=== PATIENT | male | born 1990 | race Caucasian/White ===

== ENCOUNTER 2017-01-15 23:49 | Emergency (ER) | payer BC ==
--- NOTE | ~2017-01-15 | CT4 ---
[facility] A Service of [facility] RADIOLOGY TEXT RESULTS PATIENT: YUSUF QUIROZ LOCATION: SED : 88 UNIT #: [id number] AGE: [address]: LEIA LEAL SEX: M ORDER DR: [id number] [place] [id number] E MR#: [id number] Acc #: [id number] NAME: YUSUF QUIROZ. : 1990 SEX: M STUDY DATE/TIME: 01/16/2017 0:39 UNIT: SED ROOM: STUDY DESCRIPTION: CT Abd and Pelv Wo Cont Attending Physician: Leia Leal Ordering Physician: Kelvin Weaver M.D. Primary Care Physician: Primary Care Physician No MEDICAL IMAGING REPORT This report is preliminary unless electronic signature is present. EXAM CT abdomen and pelvis, noncontrast, 01/16/2017. HISTORY 26-year-old male in the ED complaining of right flank pain beginning at about 17[address] hours earlier tonight. TECHNIQUE CT examination of the abdomen and pelvis without oral or IV contrast using kidney stone protocol. This CT exam was performed with one or more of the following radiation dose reduction techniques: automatic exposure control, adjustment of mA and/or kV according to patient size, and iterative reconstruction. FINDINGS Abdomen: There is a 4 mm obstructing calculus in the right upper ureter just below the UPJ causing [id number] right hydronephrosis. 2 or 3 tiny nonobstructing calculi within the left mid and lower kidney measuring between 2 and 5 mm. Kidneys, ureters and bladder otherwise negative. Liver, pancreas and spleen are within normal limits. Nondistended gallbladder. No bile duct dilatation. Dense material throughout the colon may represent GI contrast from a previous study elsewhere, correlate clinically. Small bowel and colon are normal in caliber and appearance, as imaged. The appendix is normal. Normal-caliber abdominal aorta. Pelvis: Bladder, prostate and rectum are within normal limits. No inguinal hernia. Limited lung base images show no active disease in the lower chest. Obstructing 4 mm calculus in the right upper ureter below the UPJ causing [id number]-ab-lxygvify right hydronephrosis. Several tiny STS. [facility] A Service of [facility] RADIOLOGY TEXT RESULTS PATIENT: YUSUF QUIROZ [place] [facility] [place]IT #: [id number] AGE: [address]: LEIA LEAL SEX: M ORDER DR: nonobstructing left renal calculi. The remainder of the examination is negative. The appendix is normal. Dictated by... Keagan Trejo M.D. THIS IS AN ELECTRONICALLY VERIFIED REPORT Keagan Trejo M.D. at 01/16/2017 9:58 PM FELICIA/bartolo TD: 01/16/2017 12:07 JOB #: [id number] MEDICAL IMAGING REPORT
[~2017-01-15 23:49] MED LIST: BENZONATATE PO; FLEXERIL10 MG; IBUPROFEN200 M1; NO MEDICATIONS; PHENERGAN PO
[2017-01-16 00:02] LABS: ALBUMIN SERUM 4.4 g/dL (3.5-5.0); ALKALINE PHOSPHATASE 57 U/L (32-92); ALT (SGPT) 26 U/L (10-40); AST (SGOT) 23 U/L (10-42); BILIRUBIN, DIRECT 0.2 mg/dL (0.0-0.2); BILIRUBIN,INDIRECT 0.7 mg/dL (0.0-0.9); BILIRUBIN,TOTAL 0.9 mg/dL (0.2-2.0); BLOOD UREA NITROGEN 14 mg/dL (9-23); BUN/CREATININE RATIO 12.72; CALCIUM SERUM 9.4 mg/dL (8.4-10.2); CARBON DIOXIDE 27 mmol/L (22-31); CHLORIDE 100 mmol/L (100-111); CREATININE SERUM 1.1 mg/dL (0.6-1.4); GLOM FILT RATE Estimated ABOVE60 mL/min (>60); GLUCOSE FASTING 121 mg/dL (70-110); PROTEIN TOTAL SERUM 7.3 g/dL (6.0-8.3); SODIUM 137 mmol/L (135-145)
[2017-01-16 00:22] LABS: URINE SOURCE CLEAN CATCH
[2017-01-16 00:24] LABS: URINE APPEARANCE CLOUDY; URINE BILIRUBIN NEG (NEG); URINE BLOOD 3+ (NEG); URINE COLOR YELLOW; URINE GLUCOSE NEG (NORM); URINE KETONE 1+ (NEG); URINE LEUKOCYTE ESTERASE NEG (NEG); URINE NITRATE NEG (NEG); URINE PROTEIN TRACE (NEG); URINE SPECIFIC GRAVITY 1.015 (1.003-1.035)
[2017-01-16 00:26] LABS: MICRO INDICATED? YES
[2017-01-16 00:28] LABS: CULTURE INDICATED? YES; URINE AMORPHOUS SEDIMENT AMORP URATES; URINE BACTERIA 1+ (NEG); URINE RBC 25-50 /[HPF] (0-2); URINE SQUAMOUS EPITHELIAL CELL FEW /[HPF]; URINE WBC 0-2 /[HPF] (0-5)
[2017-01-16 00:51] LABS: BASOPHIL% 0.3 % (0-2.5); EOSINOPHIL# 0.3 X10e3 (0-0.7); HEMATOCRIT 47.7 % (38.0-50.0); HEMOGLOBIN 15.9 gm/dL (13.0-16.0); LYMPHOCYTE# 3.3 X10e3 (1.0-3.5); MEAN CELL VOLUME 91.8 FL (83-96); MEAN CORPUSCULAR HEMOGLOBIN 30.7 PG (28-34); MEAN CORPUSCULAR HGB CONC 33.4 g/dL (30-36); MONOCYTE# 1.1 X10e3 (0-1.0); MONOCYTE% 7.4 % (3.0-12.0); NEUTROPHIL# 10.2 X10e3 (1.5-7.1); NEUTROPHIL% 68.3 % (40-75); PLATELET COUNT 273 X10e3 (140-420); RED CELL DISTRIBUTION WIDTH 12.8 % (11.0-15.5); WHITE BLOOD COUNT 14.9 X10e3 (4.0-10.5)
[2017-01-16 00:53] LABS: DIFF IND NO
== END 2017-01-16 01:52 | disposition home or self-care (01) ==
LOC: SED 23:49
PROVIDERS: Physician Assistant
DX: N20.1 Calculus of ureter (principal); F17.210 Nicotine dependence, cigarettes, uncomplicated
CPT/HCPCS: 36415; 74176; 80048; 80076; 81003; 85025; 87086; 96361; 96374; 96375; 99284; J1885; J2405